=== PATIENT | female | born 1995 | race Two or more races ===

== ENCOUNTER → 2024-12-24 | Outpatient (CLI) | payer MEDICAID ==
[2024-12-24 12:21] LABS: Basophils % (auto) 0.4 % (0.0-2.0); Eosinophils # (auto) 0.2 10 ^3/uL (0-0.8); Lymphocytes # (auto) 1.7 10 ^3/uL (0.4-5.4)
[2024-12-24 12:23] LABS: Basophils # (auto) 0 10 ^3/uL (0-0.2); Eosinophils % (auto) 1.5 % (0.0-7.0); Hematocrit 34.2 % (36.0-46.0); Hemoglobin 10.7 g/dL (12.2-16.2); Lymphocytes % (auto) 15.4 % (10.0-50.0); Mean Corpuscular Hemoglobin 22.8 pg (28.0-32.0); Mean Corpuscular Hgb Conc. 31.2 g/dL (32.0-36.0); Mean Corpuscular Volume 73.2 fL (80.0-100.0); Monocytes # (auto) 0.9 10 ^3/uL (0-1.3); Monocytes % (auto) 7.5 % (0.0-12.0); Neutrophils # (auto) 8.5 10 ^3/uL (1.6-8.6); Neutrophils % (auto) 75.2 % (37.0-80.0); Nucleated Red Blood Cells % 0.1 %; Platelet Count (auto) 311 10^3/uL (140-450); Red Blood Cells 4.67 10^6/uL (4.0-5.20); Red Cell Distribution Width 18.9 % (11.8-14.3); White Blood Cell 11.3 10^3/uL (4.4-10.8)
[2024-12-24 13:06] LABS: Amphetamine Screen, Urine Neg (NEGATIVE); Barbiturate Scree,Urine Neg (NEGATIVE); Benzodiazephine Screen, Urine Neg (NEGATIVE); Cannabinoid Screen, Urine Neg (NEGATIVE); Cocaine Screen, Urine Neg (NEGATIVE); Opiate Scree,Urine Neg (NEGATIVE); Phencyclidine Screen, Urine Neg (NEGATIVE)
[2024-12-25 12:07] LABS: Chlamydia Trachomatis, NAA Negative (Negative); Neisseria gonorrhoeae, NAA Negative (Negative)
== END | disposition home or self-care (01) ==
LOC: LAB 11:16
PROVIDERS: ATTEND Obstetrics & Gynecology
DX: O23.40 Unspecified infection of urinary tract in pregnancy, unspecified trimester (principal); Z31.430 Encounter of female for testing for genetic disease carrier status for procreative management; Z20.09 Contact with and (suspected) exposure to other intestinal infectious diseases; N39.0 Urinary tract infection, site not specified; Z3A.00 Weeks of gestation of pregnancy not specified
CPT/HCPCS: 36415; 80307; 83036; 84144; 84702; 85025; 86703; 86762; 86780; 86850; 86900; 86901; 87086; 87340

== ENCOUNTER → 2025-01-26 | Outpatient (CLI) | payer MEDICAID | END | disposition home or self-care (01) | LOC: LAB 08:35 | PROVIDERS: ATTEND Obstetrics & Gynecology | DX: Z34.80 Encounter for supervision of other normal pregnancy, unspecified trimester (principal); Z3A.00 Weeks of gestation of pregnancy not specified | CPT/HCPCS: 82951 ==

== ENCOUNTER 2025-02-24 11:37 | Outpatient (CLI) | payer MEDICAID ==
[2025-02-24 12:07] LABS: Hematocrit 34.3 % (36.0-46.0); Monocytes # (auto) 1.4 10 ^3/uL (0-1.3); Nucleated Red Blood Cells % 0.1 %
[2025-02-24 12:08] LABS: Basophils # (auto) 0 10 ^3/uL (0-0.2); Basophils % (auto) 0.4 % (0.0-2.0); Eosinophils # (auto) 0.4 10 ^3/uL (0-0.8); Eosinophils % (auto) 2.7 % (0.0-7.0); Lymphocytes # (auto) 2.6 10 ^3/uL (0.4-5.4); Lymphocytes % (auto) 19.2 % (10.0-50.0); Mean Corpuscular Hemoglobin 24.2 pg (28.0-32.0); Mean Corpuscular Hgb Conc. 32.2 g/dL (32.0-36.0); Mean Corpuscular Volume 75.2 fL (80.0-100.0); Monocytes % (auto) 10.5 % (0.0-12.0); Neutrophils % (auto) 67.2 % (37.0-80.0); Platelet Count (auto) 251 10^3/uL (140-450); Red Blood Cells 4.55 10^6/uL (4.0-5.20); White Blood Cell 13.3 10^3/uL (4.4-10.8)
== END 2025-02-24 17:00 | disposition home or self-care (01) ==
LOC: LAB 11:37
PROVIDERS: ATTEND Obstetrics & Gynecology
DX: Z34.83 Encounter for supervision of other normal pregnancy, third trimester (principal)
CPT/HCPCS: 36415; 83036; 85025

== ENCOUNTER 2025-03-31 12:03 | Observation (INO) | payer MEDICAID ==
[2025-03-30] MEDS: TERBUTALINE SULFATE 1 MG/ML 1ML VIAL SC ONE (14:25)
[~2025-03-31] VITALS: Ht 165.1 cm; Wt 77.1 kg
--- NOTE | 2025-03-31 13:47 | DVH ---
BIOPHYSICAL PROFILE HISTORY: twins Comparison Study: None TECHNIQUE: Multiple real-time grayscale sonographic images through the gravid uterus of the fetus wi th duplex Doppler color flow and M-mode spectral analysis FINDINGS: BIOPHYSICAL PROFILE: breathing score: 2 movement score: 2 tone score: 2 Quantitative GARRETT score: 2 (GARRETT: 14.9 Cm.) Total score: 8 The cervix is not visualized Single live fetus in breech presentation. heart rate 132 beats per minute. Fundal/posterior placenta without previa or abruption IMPRESSION: Biophysical profile score: 8
[2025-03-31] MEDS: TERBUTALINE SULFATE 1 MG/ML 1ML VIAL SC SCH (14:15)
--- NOTE | 2025-03-31 14:29 | DVHDS2 ---
Physician Discharge Progress N Final Diagnosis: twins 32 wks Operations or Procedures: Operations or Procedures nst reactive reviwed,sono Condition on Discharge: Good Disposition: Home Discharge Instructions: Diet: Consistent carbohydrate Activity: No Restrictions, As Tolerated Medications: procardia Follow Up Care: Specialist: 2d Discharge Statement: "Patient was advised to return to the ER or call 911 if any headaches, dizziness, shortness of breath, chest pain, abdominal pain, bleeding, fevers, or worsening of medical condition. Patient was counseled about treatment plan, medications, possible side effects, patientverbalized understanding. All questions were answered to the best of my ability. This discharge took greater then 30 minutes in planning, reviewing documentation, counseling the patient, and discussing with other team members." Visit Coding OBGYN Date of Service: Mar 30, 2025 Billing Provider: JOSIANE CHAVEZ DO DEPUTY SHERIFF/INVESTIGATOR Common Visit Codes: 42951-[id number] OBS CARE (HIGH) DEPUTY SHERIFF/INVESTIGATOR Procedure Codes: 11724-27- NON-STRESS TEST JOSIANE CHAVEZ DO Mar 31, 2025 14:29
[2025-03-31] MEDS ORDERED: TERBUTALINE SULFATE 1 MG/ML 1ML VIAL SC SCH (14:30)
[2025-03-31] MEDS ORDERED: PREN-96 PO (16:03)
[2025-03-31] MEDS ORDERED: NIFE10CA52 PO (16:04)
== END 2025-03-31 16:20 | disposition home or self-care (01) ==
LOC: UNDOADMOB 12:03 → LDRP 12:03
PROVIDERS: ADMIT Obstetrics & Gynecology; ATTEND Obstetrics & Gynecology
DX: O30.003 Twin pregnancy, unspecified number of placenta and unspecified number of amniotic sacs, third trimester (principal); Z3A.32 32 weeks gestation of pregnancy; Z79.899 Other long term (current) drug therapy; Z98.890 Other specified postprocedural states
CPT/HCPCS: 59025; 76819; 81002; 94760; 96372; G0378; J3105

== ENCOUNTER 2025-04-07 00:45 | Observation (INO) | payer MEDICAID ==
[~2025-04-07] VITALS: Ht 170.2 cm; Wt 98.9 kg
[~2025-04-07 00:45] MED LIST: NIFE10CA52 PO; PREN-96 PO
--- NOTE | 2025-04-07 13:25 | DVH ---
BIOPHYSICAL PROFILE HISTORY: twins/PTL TECHNIQUE: Multiple transabdominal real-time grayscale sonographic images through the gravid uterus of the fetus with duplex Doppler color flow and M-mode spectral analysis FINDINGS: Baby A: BIOPHYSICAL PROFILE: breathing score: 2 movement score: 2 tone score: 2 Quantitative GARRETT score: 2 (MVP: 4.1 Cm.) Total score: 8 heart rate 132 beats per minute. Baby B: BIOPHYSICAL PROFILE: breathing score: 2 movement score: 2 tone score: 2 Quantitative GARRETT score: 2 (MVP: 4.5 Cm.) Total score: 8 heart rate 6 beats per minute. IMPRESSION: Biophysical profile score: 8/8
--- NOTE | 2025-04-07 13:51 | DVHDS2 ---
Physician Discharge Progress N Final Diagnosis: testing for twins/PTL Operations or Procedures: Operations or Procedures 29yo IUP@33.2wks VSS NST reactive FKC/PTL precautions reviewed Dr. Jiang consulted, agrees with POC. Condition on Discharge: Stable Disposition: Home Discharge Instructions: Diet: Regular Activity: See Comment Activity comment: pelvic rest Medications: see med list Follow Up Care: Specialist: f/u in 1wk Discharge Statement: "Patient was advised to return to the ER or call 911 if any headaches, dizziness, shortness of breath, chest pain, abdominal pain, bleeding, fevers, or worsening of medical condition. Patient was counseled about treatment plan, medications, possible side effects, patientverbalized understanding. All questions were answered to the best of my ability. This discharge took greater then 30 minutes in planning, reviewing documentation, counseling the patient, and discussing with other team members." Visit Coding OBGYN Date of Service: Apr 07, 2025 Billing Provider: MITZI LYLE CNM SHOOK MACHINE OPERATOR Common Visit Codes: 59288-[id number] OBS CARE (HIGH) SHOOK MACHINE OPERATOR Procedure Codes: 86180-92- NON-STRESS TEST MITZI LYLE CNM Apr 07, 2025 13:51
== END 2025-04-07 13:32 | disposition home or self-care (01) ==
LOC: UNDOADMOB 11:25 → LDRP 11:25
PROVIDERS: ADMIT Obstetrics & Gynecology; ATTEND Obstetrics & Gynecology
DX: O60.03 Preterm labor without delivery, third trimester (principal); O30.003 Twin pregnancy, unspecified number of placenta and unspecified number of amniotic sacs, third trimester; Z98.890 Other specified postprocedural states; Z79.899 Other long term (current) drug therapy; Z3A.33 33 weeks gestation of pregnancy
CPT/HCPCS: 59025; 76819; 81002; 94760; G0378

== ENCOUNTER 2025-04-14 07:31 | Observation (INO) | payer MEDICAID ==
--- NOTE | 2025-04-14 14:46 | DVHDS2 ---
Physician Discharge Progress N Final Diagnosis: twins,ptl 34wks,gdm Operations or Procedures: Operations or Procedures nst reactive reviwed,sono Condition on Discharge: Good Disposition: Home Discharge Instructions: Diet: Consistent carbohydrate Activity: No Restrictions, As Tolerated Medications: na Follow Up Care: Specialist: 3d Discharge Statement: "Patient was advised to return to the ER or call 911 if any headaches, dizziness, shortness of breath, chest pain, abdominal pain, bleeding, fevers, or worsening of medical condition. Patient was counseled about treatment plan, medications, possible side effects, patientverbalized understanding. All questions were answered to the best of my ability. This discharge took greater then 30 minutes in planning, reviewing documentation, counseling the patient, and discussing with other team members." Visit Coding OBGYN Date of Service: Apr 14, 2025 Billing Provider: JOSIANE CHAVEZ DO MAIL ORDER CLERK Common Visit Codes: [id number] INP/OBS CARE (MOD), 68289-[id number] INP/OBS CARE (HIGH) MAIL ORDER CLERK Procedure Codes: 32643-19- NON-STRESS TEST JOSIANE CHAVEZ DO Apr 14, 2025 14:46
--- NOTE | 2025-04-14 15:14 | DVH ---
BIOPHYSICAL PROFILE HISTORY: Twins TECHNIQUE: Multiple transabdominal real-time grayscale sonographic images through the gravid uterus o f the fetus with duplex doppler color flow and M-mode spectral analysis FINDINGS: BIOPHYSICAL PROFILE: Baby A: breathing score: 2 movement score: 2 tone score: 2 Quantitative GARRETT score: 2 (MVP: 4.95 cm.) Total score: 8/8 The cervix 1.78 cm with funneling seen. Single live fetus in vertex presentation. heart rate 127 beats per minute. Anterior placenta without previa or abruption Biophysical profile score 8/8 corresponding to an LEWIS of 05/24/25 Baby B: breathing score: 2 movement score: 2 tone score: 2 Quantitative GARRETT score: 2 (MVP: 6.69 cm.) Total score: 8/8 The cervix 1.78 cm with funneling. Single live fetus in transverse materanl right presentation. heart rate 127 beats per minute. Fundal posterior placenta without previa or abruption Biophysical profile score 8/8 corresponding to an LEWIS of 05/24/25 IMPRESSION: Biophysical profile score: 8/8
== END 2025-04-14 15:11 | disposition home or self-care (01) ==
LOC: UNDOADMOB 12:07 → LDRP 12:07
PROVIDERS: ADMIT Obstetrics & Gynecology; ATTEND Obstetrics & Gynecology
DX: O24.419 Gestational diabetes mellitus in pregnancy, unspecified control (principal); O60.03 Preterm labor without delivery, third trimester; O30.003 Twin pregnancy, unspecified number of placenta and unspecified number of amniotic sacs, third trimester; Z3A.34 34 weeks gestation of pregnancy; Z98.890 Other specified postprocedural states; Z79.899 Other long term (current) drug therapy
CPT/HCPCS: 59025; 76817; 76819; 81002; G0378

== ENCOUNTER 2025-04-21 12:21 | Outpatient (CLI) | payer MEDICAID ==
[2025-04-21 12:51] LABS: Hematocrit 36.8 % (36.0-46.0)
[2025-04-21 12:52] LABS: Hemoglobin 12.2 g/dL (12.2-16.2); Mean Corpuscular Hemoglobin 25.9 pg (28.0-32.0); Mean Corpuscular Volume 78.0 fL (80.0-100.0); Nucleated Red Blood Cells % 0.1 %
[2025-04-22 15:07] LABS: Chlamydia Trachomatis, NAA Negative (Negative); Neisseria gonorrhoeae, NAA Negative (Negative)
== END 2025-04-21 17:00 | disposition home or self-care (01) ==
LOC: LAB 12:21
PROVIDERS: ATTEND Obstetrics & Gynecology
DX: O09.893 Supervision of other high risk pregnancies, third trimester (principal); O24.419 Gestational diabetes mellitus in pregnancy, unspecified control; O30.043 Twin pregnancy, dichorionic/diamniotic, third trimester; Z11.3 Encounter for screening for infections with a predominantly sexual mode of transmission; Z3A.00 Weeks of gestation of pregnancy not specified
CPT/HCPCS: 36415; 85025; 86780

== ENCOUNTER 2025-04-21 13:07 | Observation (INO) | payer MEDICAID ==
--- NOTE | 2025-04-21 14:48 | DVH ---
BIOPHYSICAL PROFILE HISTORY: twins TECHNIQUE: Multiple transabdominal real-time grayscale sonographic images through the gravid uterus of the fetus with duplex Doppler color flow and M-mode spectral analysis FINDINGS: TWIN B: BIOPHYSICAL PROFILE: breathing score: 2 movement score: 2 tone score: 2 Quantitative GARRETT score: 2 Total score: 8 The cervix is closed measuring 2.5 cm. Single live fetus in transverse maternal right presentation. heart rate 124 beats per minute. Grade II posterior fundal placenta without previa or abruption TWIN A: BIOPHYSICAL PROFILE: breathing score: 2 movement score: 2 tone score: 2 Quantitative GARRETT score: 2 Total score: 8 The cervix is closed measuring 1.78 cm. Cervical funneling is noted Single live fetus in vertex presentation. heart rate 127 beats per minute. Grade II anterior placenta without previa or abruption IMPRESSION: Biophysical profile score: 8 twin a/twin B. Cervix measures 1.78 cm for twin B with funneling noted.
--- NOTE | 2025-04-21 17:58 | DVHDS2 ---
Physician Discharge Progress N Final Diagnosis: testing for twins Operations or Procedures: Operations or Procedures 30yo IUP@35.2wks VSS NST reactive twin A - bpp 04/17 twin B - bpp 04/17 cervical length - 2.52 cm FKC/PTL precautions reviewed Dr. Jiang consulted, agrees with POC. Condition on Discharge: Stable Disposition: Home Discharge Instructions: Diet: Regular Activity: No Restrictions, As Tolerated Medications: see med list Follow Up Care: Specialist: f/u in 1 wk Discharge Statement: "Patient was advised to return to the ER or call 911 if any headaches, dizziness, shortness of breath, chest pain, abdominal pain, bleeding, fevers, or worsening of medical condition. Patient was counseled about treatment plan, medications, possible side effects, patientverbalized understanding. All questions were answered to the best of my ability. This discharge took greater then 30 minutes in planning, reviewing documentation, counseling the patient, and discussing with other team members." Visit Coding OBGYN Date of Service: Apr 21, 2025 Billing Provider: MITZI LYLE CNM TELEVISION ANTENNA INSTALLER Common Visit Codes: [id number]-[id number] OBS CARE (HIGH) TELEVISION ANTENNA INSTALLER Procedure Codes: 40131-64- NON-STRESS TEST MITZI LYLE CNM Apr 21, 2025 17:58
== END 2025-04-21 15:33 | disposition home or self-care (01) ==
LOC: LDRP 13:07 → UNDOADMOB 13:07 → LDRP 13:23
PROVIDERS: ADMIT Obstetrics & Gynecology; ATTEND Obstetrics & Gynecology
DX: O30.003 Twin pregnancy, unspecified number of placenta and unspecified number of amniotic sacs, third trimester (principal); Z3A.35 35 weeks gestation of pregnancy; Z98.890 Other specified postprocedural states; Z79.899 Other long term (current) drug therapy
CPT/HCPCS: 59025; 76819; G0378

== ENCOUNTER 2025-04-28 06:33 | Observation (INO) | payer MEDICAID ==
[2025-04-28 15:30] LABS: Hematocrit 38.7 % (36.0-46.0); Hemoglobin 12.7 g/dL (12.2-16.2); Mean Corpuscular Hemoglobin 26.2 pg (28.0-32.0); Mean Corpuscular Volume 79.6 fL (80.0-100.0); Nucleated Red Blood Cells % 0.1 %
[2025-04-28 15:31] LABS: Urine Protein, UAD TRACE (Negative)
[2025-04-28 15:36] LABS: INR 0.92 (0.9-1.15); Partial Thromboplastin Time 28.8 SEC (24.5-34.5); Prothrombin Time 9.8 sec (9.3-11.8)
[2025-04-28 15:38] LABS: Protein, Urine 40.0 mg/dL (1-14)
[2025-04-28 15:42] LABS: Amphetamine Screen, Urine Neg (NEGATIVE); Barbiturate Scree,Urine Neg (NEGATIVE); Benzodiazephine Screen, Urine Neg (NEGATIVE); Cannabinoid Screen, Urine Neg (NEGATIVE); Cocaine Screen, Urine Neg (NEGATIVE); Opiate Scree,Urine Neg (NEGATIVE); Phencyclidine Screen, Urine Neg (NEGATIVE)
[2025-04-28 15:44] LABS: Alanine Aminotransferase < 9 U/L (7-40); Albumin 3.8 g/dL (3.2-4.8); Alkaline Phosphatase 239 U/L (46-116); Anion Gap 9 (5-15); BUN/Creatinine Ratio 9.6 (10.0-20.0); Bilirubin, Total 0.4 mg/dL (0.2-1.0); Blood Urea Nitrogen < 5 mg/dL (9-23); Calcium 9.3 mg/dL (8.7-10.4); Carbon Dioxide 24 mmol/L (20-31); Chloride 105 mmol/L (98-107); Glucose 104 mg/dL (74-106); Potassium 3.9 mmol/L (3.5-5.1); Sodium 138 mmol/L (136-145); Total Protein 7.0 g/dL (5.7-8.2); Uric Acid 4.4 mg/dL (3.1-7.8)
--- NOTE | 2025-04-28 17:08 | DVH ---
BIOPHYSICAL PROFILE HISTORY: Twins TECHNIQUE: Multiple transabdominal real-time grayscale sonographic images through the gravid uterus of the fetus with duplex Doppler color flow and M-mode spectral analysis FINDINGS: BIOPHYSICAL PROFILE: BABY B breathing score: 2 movement score: 2 tone score: 2 Quantitative GARRETT score: 2 (MVP: 5.4 Cm.) Total score: 8/8 The cervix not measure Single live fetus in TRANSVERSE HEAD ON MATERNAL LEFT presentation. heart rate 137 beats per minute. FUNDAL POSTERIOR FUNDAL Grade 2 placenta without previa or abruption Single live fetus at 36 weeks 2 days Biophysical profile score 8/8 corresponding to an LEWIS of 05/24/2025. IMPRESSION: 1. TWIN INTRAUTERINE 2. Biophysical profile score: 8/8 ON TWIN A AND TWIN B. 3. position TWIN A colon POSITION BREECH ; PLACENTA LOCATION ANTERIOR 4. heart rate 125 beats per minute TWIN A 5. HEART RATE 137 BEATS PER MINUTE TWIN B 6. NO PLACENTA PREVIA OR PLACENTAL ABRUPTION.
--- NOTE | 2025-04-28 19:47 | DVHDS2 ---
Physician Discharge Progress N Final Diagnosis: testing for twins Operations or Procedures: Operations or Procedures 30yo IUP@36.2wks, +FM, denies UCs/VB/LOF/TILLMAN/vision changes/RUQ pain VSS, normotensive NST reactive on twin A and B BPP wnl on twin A and B Dr. Jiang consulted, agrees with POC. f/u in 3 days FKC/PTL precautions reviewed. Laboratory Tests Test 04/28/25 15:00 04/28/25 15:15 Range/Units White Blood Count 8.5 4.4-10.8 10^3/uL Red Blood Count 4.87 4.0-5.20 10^6/uL Hemoglobin 12.7 12.2-16.2 g/dL Hematocrit 38.7 36.0-46.0 % Mean Corpuscular Volume 79.6 L 80.0-100.0 fL Mean Corpuscular Hemoglobin 26.2 L 28.0-32.0 pg Mean Corpuscular Hemoglobin Concent 32.9 32.0-36.0 g/dL Red Cell Distribution Width 18.3 H 11.8-14.3 % Platelet Count 218 140-450 10^3/uL Mean Platelet Volume 7.5 6.9-10.8 fL Neutrophils (%) (Auto) 71.8 37.0-80.0 % Lymphocytes (%) (Auto) 18.8 10.0-50.0 % Monocytes (%) (Auto) 7.7 0.0-12.0 % Eosinophils (%) (Auto) 1.3 0.0-7.0 % Basophils (%) (Auto) 0.4 0.0-2.0 % Neutrophils # (Auto) 6.1 1.6-8.6 10 ^3/uL Lymphocytes # (Auto) 1.6 0.4-5.4 10 ^3/uL Monocytes # (Auto) 0.7 0-1.3 10 ^3/uL Eosinophils # (Auto) 0.1 0-0.8 10 ^3/uL Basophils # (Auto) 0 0-0.2 10 ^3/uL Nucleated Red Blood Cells 0.1 % Prothrombin Time 9.8 9.3-11.8 sec Prothrombin Time INR 0.92 0.9-1.15 Activated Partial Thromboplast Time 28.8 24.5-34.5 SEC Sodium Level 138 136-145 mmol/L Potassium Level 3.9 3.5-5.1 mmol/L Chloride Level 105 98-107 mmol/L Carbon Dioxide Level 24 20-31 mmol/L Anion Gap 9 5-15 Blood Urea Nitrogen < 5 L 9-23 mg/dL Creatinine 0.52 L 0.550-1.02 mg/dL Glomerular Filtration Rate Calc 130 >90 mL/min BUN/Creatinine Ratio 9.6 L 10.0-20.0 Serum Glucose 104 74-106 mg/dL Uric Acid 4.4 3.1-7.8 mg/dL Calcium Level 9.3 8.7-10.4 mg/dL Total Bilirubin 0.4 0.2-1.0 mg/dL Aspartate Amino Transferase (AST) 22 13-40 U/L Alanine Aminotransferase (ALT) < 9 7-40 U/L Alkaline Phosphatase 239 H 46-116 U/L Total Protein 7.0 5.7-8.2 g/dL Albumin 3.8 3.2-4.8 g/dL Treponema pallidum Antibody Non-reactive Negative Hepatitis C Antibody Negative Negative Urine Color Yellow Yellow Urine Clarity Turbid H Clear Urine pH 6.0 5.0-9.0 Urine Specific [place] 1.019 1.001-1.035 Urine Protein Trace H Negative Urine Ketones Negative Negative Urine Blood Negative Negative /uL Urine Nitrite Negative Negative Urine Bilirubin Negative Negative Urine Urobilinogen Normal Negative mg/dL Urine Leukocyte Esterase Trace Negative /uL Urine RBC 2 0 - 4 /hpf Urine Microscopic WBC 9 H 0-5 /HPF Urine Squamous Epithelial Cells Many <5 /hpf Urine Bacteria None seen None Seen /hpf Urine Mucus Few None Seen Urine Creatinine 126.39 H 30.0-125.0 mg/dL Urine Protein/Creatinine Ratio 0.32 Urine Glucose Normal Normal mg/dL Urine Total Protein 40.0 H 1-14 mg/dL Urine Opiates Screen Neg NEGATIVE Urine Fentanyl Screen Neg NEGATIVE Urine Barbiturates Screen Neg NEGATIVE Urine Phencyclidine Screen Neg NEGATIVE Urine Amphetamines Screen Neg NEGATIVE Urine Benzodiazepines Screen Neg NEGATIVE Urine Cocaine Screen Neg NEGATIVE Urine Cannabinoids Screen Neg NEGATIVE Other Interventions Other Interventions [facility] [address] [facility] [address] Ph: [phone] DIAGNOSTIC IMAGING Diagnostic Imaging Report : [id number] Signed PATIENT: CIERA WHITE ACCT: [id number] UNIT: [id number] : 1995 LOC: LD ROOM / BED: TRIAGE1 / A AGE / SEX: 30 / F ADM STATUS: ADM IN SERVICE [id number] ORDERING PHYSICIAN: MITZI LYLE CNM PROCEDURE(s): BPP - BIOPHYSICAL PROFILE REASON: Twins ORDER NUMBER(s): [id number], ACCESSION NUMBER(s): [id number] BIOPHYSICAL PROFILE HISTORY: Twins TECHNIQUE: Multiple transabdominal real-time grayscale sonographic images through the gravid uterus of the fetus with duplex Doppler color flow and M-mode spectral analysis FINDINGS: BIOPHYSICAL PROFILE: BABY B breathing score: 2 movement score: 2 tone score: 2 Quantitative GARRETT score: 2 (MVP: 5.4 Cm.) Total score: 8/8 The cervix not measure Single live fetus in TRANSVERSE HEAD ON MATERNAL LEFT presentation. heart rate 137 beats per minute. FUNDAL POSTERIOR FUNDAL Grade 2 placenta without previa or abruption Single live fetus at 36 weeks 2 days Biophysical profile score 8/8 corresponding to an LEWIS of 05/24/2025. IMPRESSION: 1. TWIN INTRAUTERINE 2. Biophysical profile score: 8/8 ON TWIN A AND TWIN B. 3. position TWIN A colon POSITION BREECH ; PLACENTA LOCATION ANTERIOR 4. heart rate 125 beats per minute TWIN A 5. HEART RATE 137 BEATS PER MINUTE TWIN B 6. NO PLACENTA PREVIA OR PLACENTAL ABRUPTION. ATED BY: BECKY HEADLEY Jr., DO DICTATED DATE/TIME: 04/28/251704 SIGNED BY: BECKY HEADLEY Jr., SIGNED DATE/TIME: 04/28/251704 CC: Condition on Discharge: Stable Disposition: Home Discharge Instructions: Diet: Regular Activity: Light activity Medications: see med list Follow Up Care: Specialist: f/u in 3 days Discharge Statement: "Patient was advised to return to the ER or call 911 if any headaches, dizziness, shortness of breath, chest pain, abdominal pain, bleeding, fevers, or worsening of medical condition. Patient was counseled about treatment plan, medications, possible side effects, patientverbalized understanding. All questions were answered to the best of my ability. This discharge took greater then 30 minutes in planning, reviewing documentation, counseling the patient, and discussing with other team members." Visit Coding OBGYN Date of Service: Apr 28, 2025 Billing Provider: MITZI LYLE CNM CATALYST OPERATOR Common Visit Codes: [id number] OBS CARE (HIGH) CATALYST OPERATOR Procedure Codes: 46640-62- NON-STRESS TEST MITZI LYLE CNM Apr 28, 2025 19:47
== END 2025-04-28 17:29 | disposition home or self-care (01) ==
LOC: UNDOADMOB 14:47 → LDRP 14:47
PROVIDERS: ADMIT Obstetrics & Gynecology; ATTEND Obstetrics & Gynecology
DX: O30.003 Twin pregnancy, unspecified number of placenta and unspecified number of amniotic sacs, third trimester (principal); Z3A.36 36 weeks gestation of pregnancy; Z98.890 Other specified postprocedural states; Z79.899 Other long term (current) drug therapy; Z86.2 Personal history of diseases of the blood and blood-forming organs and certain disorders involving the immune mechanism
CPT/HCPCS: 36415; 59025; 76819; 80053; 80307; 81001; 82570; 84156; 84550; 85025; 85610; 85730; 86780; 86803; 94760; G0378

== ENCOUNTER 2025-05-01 06:55 | Observation (INO) | payer MEDICAID ==
--- NOTE | 2025-05-01 16:41 | DVH ---
BIOPHYSICAL PROFILE HISTORY: TWINS TECHNIQUE: Multiple real-time grayscale sonographic images through the gravid uterus of the fetus wi th duplex Doppler color flow. FINDINGS: BIOPHYSICAL PROFILE TWIN A: breathing score: 2 movement score: 2 tone score: 2 Quantitative GARRETT score: 2 Total score: 8 out of 8 BIOPHYSICAL PROFILE TWIN B: breathing score: 2 movement score: 2 tone score: 2 Quantitative GARRETT score: 2 Total score: 8 out of 8 Twin A : heart rate 124 beats per minute. Cephalic lie. Placenta anteriorly positioned. Larges t pocket volume of 3.4 cm Twin B: heart rate 150 beats per minute. Oblique positioned. Placenta fundally/posteriorly pos itioned. Maximum pocket volume of 8.5 cm. IMPRESSION: Twin gestation Biophysical profile score: 8 out of 8 for each of the twins.
--- NOTE | 2025-05-02 08:33 | DVHDS2 ---
Physician Discharge Progress N Final Diagnosis: TWINS GDM Operations or Procedures: Operations or Procedures NST REACTIVE REVIWED,SONO Condition on Discharge: Good Disposition: Home Discharge Instructions: Diet: Regular Activity: No Restrictions, As Tolerated Medications: NA Follow Up Care: Specialist: 3D Discharge Statement: "Patient was advised to return to the ER or call 911 if any headaches, dizziness, shortness of breath, chest pain, abdominal pain, bleeding, fevers, or worsening of medical condition. Patient was counseled about treatment plan, medications, possible side effects, patientverbalized understanding. All questions were answered to the best of my ability. This discharge took greater then 30 minutes in planning, reviewing documenta tion, counseling the patient, and discussing with other team members." Visit Coding OBGYN Date of Service: May 01, 2025 Billing Provider: JOSIANE CHAVEZ DO DIRECTOR OF ARCHIVES Common Visit Codes: [id number] INP/OBS CARE (HIGH) DIRECTOR OF ARCHIVES Procedure Codes: 52889-95- NON-STRESS TEST JOSIANE CHAVEZ DO May 02, 2025 08:33
== END 2025-05-01 16:45 | disposition home or self-care (01) ==
LOC: LDRP 15:00
PROVIDERS: ADMIT Obstetrics & Gynecology; ATTEND Obstetrics & Gynecology
DX: O24.419 Gestational diabetes mellitus in pregnancy, unspecified control (principal); O30.003 Twin pregnancy, unspecified number of placenta and unspecified number of amniotic sacs, third trimester; Z3A.36 36 weeks gestation of pregnancy; Z79.899 Other long term (current) drug therapy
CPT/HCPCS: 59025; 76819; 81002; G0378

== ENCOUNTER 2025-05-05 14:41 | Inpatient (IN) | payer MEDICAID ==
[2025-05-05] VITALS (7 sets, daily range): BP systolic 109–112; BP diastolic 54–71; PULSE 62–80; RESP 16–18; TEMP 97.7–98; O2SAT 94–97
[~2025-05-05] VITALS: Ht 170.2 cm; Wt 102.1 kg
--- NOTE | 2025-05-05 15:56 | DVH ---
BIOPHYSICAL PROFILE HISTORY: Twin Gest. Comparison Study: US BIOPHYSICAL PROFILE on DOS: 05/01/25, US BIOPHYSICAL PROFILE on DOS: 04/28/25, US BIOPHYSICAL PROFILE on DOS: 04/21/25, US BIOPHYSICAL PROFILE on DOS: 04/14/25, US BIOPHYSICAL PROFILE on DOS: 04/07/25 TECHNIQUE: Multiple real-time grayscale sonographic images through the gravid uterus of the fetus wi th duplex Doppler color flow and M-mode spectral analysis FINDINGS: TWIN A: BIOPHYSICAL PROFILE: breathing score: 2 movement score: 2 tone score: 2 Quantitative GARRETT score: 2 (GARRETT: 16.9 cm, deepest pocket 6.9 Cm.) Total score: 8 The cervix is not visualized Single live fetus in cephalic presentation. heart rate 125 beats per minute. Anterior placenta without previa or abruption TWIN B: BIOPHYSICAL PROFILE: breathing score: 2 movement score: 2 tone score: 2 Quantitative GARRETT score: 2 (GARRETT: Deepest pocket 6.2 Cm.) Total score: 8 The cervix is not visualized Single live fetus in transverse left presentation. heart rate 132 beats per minute. Fundal/posterior placenta without previa or abruption IMPRESSION: Biophysical profile score: 8 for both twin a and twin B
[2025-05-05 16:53] LABS: Hematocrit 37.4 % (36.0-46.0); Hemoglobin 12.5 g/dL (12.2-16.2); Mean Corpuscular Hemoglobin 26.5 pg (28.0-32.0); Mean Corpuscular Volume 79.3 fL (80.0-100.0); Nucleated Red Blood Cells % 0.2 %
[2025-05-05 16:54] LABS: INR 0.92 (0.9-1.15); Partial Thromboplastin Time 27.8 SEC (24.5-34.5); Prothrombin Time 9.8 sec (9.3-11.8)
[2025-05-05 16:57] LABS: Alanine Aminotransferase < 9 U/L (7-40); Albumin 3.8 g/dL (3.2-4.8); Alkaline Phosphatase 262 U/L (46-116); Anion Gap 12 (5-15); BUN/Creatinine Ratio 9.3 (10.0-20.0); Bilirubin, Total 0.4 mg/dL (0.2-1.0); Blood Urea Nitrogen < 5 mg/dL (9-23); Calcium 9.6 mg/dL (8.7-10.4); Carbon Dioxide 21 mmol/L (20-31); Chloride 106 mmol/L (98-107); Glucose 127 mg/dL (74-106); Potassium 3.8 mmol/L (3.5-5.1); Sodium 139 mmol/L (136-145); Total Protein 6.8 g/dL (5.7-8.2)
[2025-05-05] MEDS: TETRACAINE 1% INJ 2 ML VIAL IJ ONE (17:24)
[2025-05-05] MEDS: FAMOTIDINE (10MG/ML) 2ML VL IV ONE (17:25)
--- NOTE | 2025-05-05 17:26 | DVHHP2 ---
OB CC & HPI Date Date of Admission: May 05, 2025 Patient Identification: : 2 Para: 1 EDC: May 24, 2025 EGA: 37WKS Chief Complaints: Reason for admission: active labor Indication for : desires repeat Admission Nurse Assessment Rev: No History of Present Complaints PT IS ADMITTED FOR LABOR,SHE HAS TWINS WITH GDMA2.SHE ALSO HAS HX OF PTL AND HAS BEEN ON PROCARDIA DESPITE IT ALIYA Past Medical History Cardiac: No pertinent Hx Pulmonary: No pertinent Hx Central Nervous System: No pertinent Hx GI: No pertinent Hx Hemotology/Oncology: No pertinent Hx Hepatobiliary: No pertinent Hx Psychiatric: No pertinent Hx Musculoskeletal: No pertinent Hx Rheumotologic: No pertinent Hx Infectious Disease: No peritnent Hx ENT: No pertinent Hx Renal/: No pertinent Hx Endocrine: No pertinent Hx Dermatology: No pertinent Hx Past Surgical History: OB History OB History Care: Good Care Ultrasounds: Normal mid trimester US Obstetrical Complications: Gestational Diabetes Medical Complications: None Allergies: Coded Allergies: NO KNOWN ALLERGIES (Unverified , 03/31/25) Home Meds Reported Medications Nifedipine (PROCARDIA CAPSULE) 10 Mg Cp, 10 MG PO QID, CAP 03/31/25 Vit W/ Ferrous Fumara ( One Daily) Daily Tab, 1 TAB PO DAILY, #90 TAB 3 Refills 03/31/25 Current Medications Current Medications Medications (Trade) Dose Ordered Sig/Paolo Route PRN Reason Start Time Stop Time Status Last Admin Lactated Ringer's 1,000 ml @ 125 mls/hr Q8H IV 05/05/25 16:45 Family & Social History Family/Social History Blood Type: Unknown Rubella: unknown RPR/VDRL: Negative GBS Status: Unknown HBsAG: Negative Review of Systems Constitutional: No symptom reported Ears, Nose, & Throat: No symptom reported Eyes: No symptom reported Pulmonary/Respiratory: No symptom reported Cardiovascular: No symptom reported Gastrointestinal: No symptom reported Genitourinary: No symptom reported Musculoskeletal: No symptom reported Skin: No symptom reported Psychiatric: No symptom reported Endocrine: No symptom reported Hemotologic/Lymphatic: No symptom reported OB Admission Exam Physical Exam HEENT: TMs Normal, Fontanelles Normal, Nasal Mucosa Normal, Eyes non-injected, Oropharynx Normal, PERRLA, Moist Membranes, EOMI Heart: Rhythm Normal Lungs: Clear Abdomen: Non tender Extremities: Normal Reflexes: Normal Cervical Dilatation: 1cm Effacement: 25% Station: -2 Membranes: Intact Heart Rate: 130's Accelerations: Accelerations Present Decelerations: No Decelerations Short Term Variability: Present Shelter Variability: Average (6-25) Contractions on Admission: < 5 Minutes Apart Intensity: Moderate OB Plan Plan Admitting Diagnosis: IUP AT 37WKS WITH TWINS IN LABOR GDMA2 PTL ON PROCARDIA MORBID OBESITY DESIRES RCS Plan: Section Other Plan: INFORMED CONSENT OBTAINED ,RISK AND COMPL OF CS D/W PT ALL QUESTIONS ANSWERED,POSSIB OF INFECTION,BLEEDING,DVT,PE AND PREMATURITY RDS IN BABIES D/W PT.PT WISHES TO PROCEED WITH RCS Visit Coding OBGYN Date of Service: May 05, 2025 Billing Provider: JOSIANE CHAVEZ DO SVP PROGRAMMATIC TV Common Visit Codes: [id number] INP/OBS CARE (HIGH) SVP PROGRAMMATIC TV Procedure Codes: 63819-04- NON-STRESS TEST JOSIANE CHAVEZ DO May 05, 2025 17:26
[2025-05-05] MEDS ORDERED: fentaNYL CITRATE 100 MCG/2 ML VL ONE (17:27)
[2025-05-05] MEDS ORDERED: MORPHINE SULF PF 5 MG/10 ML VIAL ONE (17:27)
[2025-05-05] MEDS ORDERED: DOCU-94 PO (17:30)
[2025-05-05] MEDS: GUM (CHEWING) 1 GUM CHEW CHEW ONE (17:30)
[2025-05-05] MEDS ORDERED: ONDANSETRON HCL 4 MG/2 ML VIAL ONE (17:30)
[2025-05-05] MEDS ORDERED: HYDR-4072 PO (17:30)
[2025-05-05] MEDS ORDERED: GLYCOPYRROLATE 0.2 MG/ML 1ML VIAL ONE (17:30)
[2025-05-05] MEDS ORDERED: BUPIVACAINE/DEXTROSE MPF 0.75% 2 ML AMP IT ONE (17:30)
[2025-05-05] MEDS: LACT. RINGERS/OXYTOCIN 20UNITS 1,000 ML IV ONE (17:30)
[2025-05-05] MEDS ORDERED: CEPH500T PO (17:30)
[2025-05-05] MEDS ORDERED: ceFAZolin 1GM/50ML 50 ML IV SCH (17:30)
[2025-05-05] MEDS ORDERED: IBUP-1456 PO (17:30)
[2025-05-05] MEDS ORDERED: KETOROLAC TROMETH 30 MG/ML 1ML VIAL ONE (17:30)
--- NOTE | 2025-05-05 18:22 | DVHOP2 ---
Operative Report DATE OF OPERATION:05/05/25 PREOPERATIVE DIAGNOSES: [iup at 37wks in labor,twin gest,previous csx1 desires rcs,morbid obesity] POSTOPERATIVE DIAGNOSES: [same] OPERATION PERFORMED: Repeat Section FINDINGS: [2 boys] infant. Apgars of [8 and 9 ] and [7 and 8 ]. Weight [good] crying tone. [clear] amniotic fluid. Placenta and three-vessel were intact. Normal tubes, ovaries, and uterus. Moderate scar tissue. SURGEON: Jen Chavez D.O. COCKTAIL LOUNGE MANAGER: photovoltaic installation technician, [sheba]. ANESTHESIOLOGIST: Ion nevarez ANESTHESIA: [Duramorph spinal, regional]. COMPLICATIONS: [none]. ESTIMATED BLOOD LOSS: [1500] mL. BLOOD PRODUCTS USED: [none]. PROCEDURE IN DETAIL: The patient was taken to the operating room, placed in sitting position, and spinal was placed without difficulty. She was then prepped and draped in a sterile fashion. A low Pfannenstiel incision was made scapel. At this point, it was carried down through the rectus fascia, nicked in the midline, and carried laterally. The rectus muscles were in the midline. Peritoneum was identified and entered with sharp dissection. Vesicouterine peritoneum was taken off the lower uterine segment. A lower uterine transverse incision was made with a scalpel down the chorionic membranes, ruptured with hemostat. Infant was in vertex position. One hand was placed in the lower uterine segment. Head was essentially delivered spontaneously. Nose and mouth were bulb suctioned. Shoulders and torso were delivered without difficulty. Again, pharynx, nose, and mouth were re-suctioned with vigorous crying tone. Cord was cut. The infants were baby boyx2,apgasr 8/9 and 7/8 vx and transverse lie,they was handed off to the awaiting Respiratory. At this point, umbilical blood sample was taken. Placenta was removed. Uterus was exteriorized, cleared off all clots and debris, irrigated, and closed with a double layer of 0-Vicryl. The vesicouterine peritoneum was incorporated into this closure. We had complete hemostasis. EBL was [1500] mL. The instrument, lap, and sponge count was correct x1. The uterus was placed back into the peritoneum. The peritoneal cavity was re-inspected and the lower uterine incision with good hemostasis. We closed the peritoneum with running continuous of 2-0 Vicryl. The Rectus Fascia was closed with 0-PDS, running continuous, looped-0. The skin was closed undermined, irrigated, and close with radha. CONDITION: The patient's and the infant's condition is stable and but guarded. Visit Coding OBGYN Date of Service: May 05, 2025 Billing Provider: JEN CHAVEZ DO MANAGER REGIONAL SALES Common Visit Codes: [id number] INP/OBS CARE (HIGH) MANAGER [employer]IONAL SALES Procedure Codes: [id number] DELIVERY ONLY JEN CHAVEZ DO May 05, 2025 18:22
--- NOTE | 2025-05-05 18:25 | POSTOP ---
Post-Operative Note Post-Operative Note Preop Diagnosis iup at 37wks in labor,twin gest ,gdma2,,morbid obesity,desires rcs Postop Diagnosis: same Operation performed rcs Specimen baby boyx2,apgsr 04/18,03/17 Anesthesia: Regional Anesthesiologist: марина Blood Loss(fluid mgmt) 1500ml Surgeon Josiane Jiang Merchandise Manager sheba Implant na Complications & Mgmt none Date 05/05/25 Time 18:22 Visit Coding OBGYN Date of Service: May 05, 2025 Billing Provider: JOSIANE JIANG DO COOLER CONVEYOR LOADER Common Visit Codes: [id number] INP/OBS CARE (HIGH) COOLER CONVEYOR LOADER Procedure Codes: [id number] DELIVERY ONLY JOSIANE JIANG DO May 05, 2025 18:25
[2025-05-05 18:32] LABS: Urine Protein, UAD TRACE (Negative)
[2025-05-05 18:38] LABS: Amphetamine Screen, Urine Neg (NEGATIVE); Barbiturate Scree,Urine Neg (NEGATIVE); Benzodiazephine Screen, Urine Neg (NEGATIVE); Cannabinoid Screen, Urine Neg (NEGATIVE); Cocaine Screen, Urine Neg (NEGATIVE); Opiate Scree,Urine Neg (NEGATIVE); Phencyclidine Screen, Urine Neg (NEGATIVE)
[2025-05-05] MEDS ORDERED: NALOXONE HCL 0.4 MG/ML VIAL IV PRN (18:45)
[2025-05-05] MEDS ORDERED: KETOROLAC TROMETH 30 MG/ML 1ML VIAL IV PRN (18:45)
[2025-05-05] MEDS ORDERED: ONDANSETRON HCL 4 MG/2 ML VIAL IV PRN (18:45)
[2025-05-05] MEDS: LACTATED RINGER'S 1,000 ML IV ONE (18:49)
[2025-05-05] MEDS: ceFAZolin 2 GM/D5W50ml 50 ML IV ONE ×2 (18:50)
[2025-05-05] MEDS: ACETAMINOPHEN IV 100 ML IV ONE (18:53)
[2025-05-05] MEDS: ACETAMINOPHEN IV 1000 MG/100ML (10MG/ML) IV ONE (19:00)
[2025-05-05] MEDS: ONDANSETRON HCL 4 MG/2 ML VIAL IV PRN (19:45)
[2025-05-05] MEDS: LACTATED RINGER'S 1,000 ML IV SCH (20:40)
[2025-05-06] VITALS (21 sets, daily range): BP systolic 106–131; BP diastolic 55–79; PULSE 75–122; RESP 16–18; TEMP 97.7–98.8; O2SAT 94–97
[2025-05-06] MEDS: ceFAZolin 1GM/50ML 50 ML IV SCH (01:07)
--- NOTE | 2025-05-06 01:54 | DVHPN2 ---
Progress Note Date Seen: May 06, 2025 Subjective S: falk in place. not ambulating yet, tolerating ice chips, pain managed with IV meds, formula feeding only vital signs Vital Sign Date Time Temp Pulse Resp B/P (MAP) Pulse Ox O2 Delivery O2 Flow Rate FiO2 05/05/25 19:10 Room Air 05/05/25 18:55 77 17 107/55 (72) 98 05/05/25 18:40 97.3 97.3 Total Intake and Output 05/05/25 05/05/25 05/06/25 15:00 23:00 07:00 Intake Total 50 ml Balance 50 ml medications Current Medications Medications Dose Ordered Sig/Paolo Route Start Time Stop Time Status Last Admin Dose Admin Lactated Ringer's 1,000 ml @ 125 mls/hr Q8H IV 05/05/25 16:45 05/05/25 20:40 125 MLS/HR Ondansetron HCl 4 mg Q4HP PRN IV 05/05/25 17:30 05/05/25 19:45 4 MG Diphenhydramine HCl 25 mg Q4HP PRN IV 05/05/25 18:45 Ondansetron HCl 4 mg Q4HP PRN IV 05/05/25 18:45 Cancel Ketorolac Tromethamine 30 mg Q6HP PRN IV 05/05/25 18:45 05/10/25 18:44 Cefazolin Sodium 50 ml @ 100 mls/hr Q8H IV 05/06/25 01:00 05/06/25 17:29 05/06/25 01:07 100 MLS/HR laboratory and microbiology Laboratory Tests 05/05/25 16:31 Test 05/05/25 16:31 Range/Units Serum Glucose 127 H 74-106 mg/dL Objective O: VSS Chest: heart sounds normal and lung sounds clear bilaterally Abd: soft, non-tender, fundus at U/firm/midline, active bowel sounds, no rebound or guarding Incision: mepilex dressing clean/dry/intact, old serosanguineous drainage noted Ext: Non-tender, 1+ edema Lochia: minimal See lab results Problems(with codes): (1) S/P repeat low transverse (2) Twins, both liveborn Assessment/Plan A/P: 30yo now POD#1 s/p repeat -Continue with routine post-op PP care Plan discussed with: Patient Visit Coding OBGYN Date of Service: May 06, 2025 Billing Provider: MITZI LYLE CNM OVEN DUMPER Common Visit Codes: [id number] INP/OBS CARE(HIGH) MITZI LYLE CNM May 06, 2025 01:54
[2025-05-06] MEDS: ACETAMINOPHEN IV 1000 MG/100ML (10MG/ML) IV PRN ×2 (02:29→11:39)
[2025-05-06] MEDS: diphenhdrAMINE HCL 50 MG/1 ML VL IV PRN (03:26)
[2025-05-06 06:06] LABS: Hematocrit 32.2 % (36.0-46.0); Hemoglobin 10.8 g/dL (12.2-16.2); Mean Corpuscular Hemoglobin 26.4 pg (28.0-32.0); Mean Corpuscular Volume 78.8 fL (80.0-100.0); Nucleated Red Blood Cells % 0.0 %
[2025-05-06] MEDS ORDERED: HYDROcodone-ACET 5/325MG TAB PO PRN (18:30)
[2025-05-06] MEDS: HYDROcodone-ACET 5/325MG TAB PO PRN (19:40)
[2025-05-06] MEDS: DOCUSATE SOD 100 MG CAP PO SCH (21:42)
[2025-05-06] MEDS: SIMETHICONE 80 MG CHEWABLE TABLET PO SCH (21:42)
--- NOTE | 2025-05-07 01:08 | DVHPN2 ---
Progress Note Date Seen: May 07, 2025 Subjective Patient sitting up in bed and eating. States she feels slightly itchy, but is overall doing well. Baby A in bassinet, sleeping at bedside. Baby B with RN receiving bath S: -Lochia minimal -Regular diet well tolerated. -Ambulating and voiding well w/o feeling dizzy or lightheaded -Pain relieved with oral medication PRN -Passing flatus but no BM yet. -Bottlefeeding w/o problem -Desires and requests to be discharged home Sunday (05/08) vital signs Vital Sign Date Time Temp Pulse Resp B/P (MAP) Pulse Ox O2 Delivery O2 Flow Rate FiO2 05/06/25 23:20 98.8 105 16 129/72 (91) 97 98.8 05/06/25 19:00 Room Air Total Intake and Output 05/06/25 05/06/25 05/07/25 15:00 23:00 07:00 Output Total 850 ml 250 ml Balance -850 ml -250 ml medications Current Medications Medications Dose Ordered Sig/Apolo Route Start Time Stop Time Status Last Admin Dose Admin Ondansetron HCl 4 mg Q4HP PRN IV 05/05/25 17:30 05/05/25 19:45 4 MG Ondansetron HCl 4 mg Q4HP PRN IV 05/05/25 18:45 Cancel Ketorolac Tromethamine 30 mg Q6HP PRN IV 05/05/25 18:45 05/10/25 18:44 Cancel Docusate Sodium 100 mg Q12HR PO 05/06/25 22:00 05/06/25 21:42 100 MG Dimethicone 80 mg QID PO 05/06/25 22:00 05/06/25 21:42 80 MG Ibuprofen 800 mg Q8HP PRN PO 05/06/25 18:30 Acetaminophen/ Hydrocodone Bitart 1 tab Q4HPRN PRN PO 05/06/25 18:30 Acetaminophen/ Hydrocodone Bitart 2 tab Q4HPRN PRN PO 05/06/25 18:30 05/06/25 19:40 2 TAB laboratory and microbiology Laboratory Tests 05/06/25 05:57 05/05/25 16:31 Test 05/05/25 16:31 Range/Units Serum Glucose 127 H 74-106 mg/dL Objective O: -A&O x4. No apparent distress. Affect appropriate -Afebrile, VSS -Chest: heart and lung sounds normal. -Breasts: Nipples intact w/o cracks or soreness -Abdomen: normal BS, soft, non-tender, no rebound or guarding, fundus firm @ U- 1, -Lower abdominal incision site with dressing dry and intact. No edema, erythema or induration -Extremities: no edema or tenderness Problems(with codes): (1) S/P repeat low transverse (2) Twins, both liveborn Assessment/Plan A: 30 yo now Post operative & ppd # 2 s/p repeat Section for twin gestation, doing well. Blood Type: A+ Bottle feeding Rubella Immune Hemorrhage P: -Continue pain management with oral medications as previously ordered -Increase fluid intake and fiber in diet to promote regular bowel movements, Laxative PRN -Educated patient on self-care and warning signs to watch for, including PPH, PPD, and pre-eclampsia -Continue routine care Plan discussed with: Patient, Sister (family) Plan discussed with: Patient Visit Coding OBGYN Date of Service: May 07, 2025 Billing Provider: SHANEKA MARINA CNM STOCK DRIER TENDER Common Visit Codes: [id number] INP/OBS CARE(HIGH) SHANEKA MARINA CNM May 07, 2025 01:08
[2025-05-07 03:00] VITALS: BP 130/80; PULSE 96; RESP 16; TEMP 97.9; O2SAT 97
[2025-05-07 06:59] VITALS: BP 134/82; PULSE 100; TEMP 98.3; O2SAT 97
[2025-05-07 11:26] VITALS: BP 126/73; PULSE 89; RESP 20; TEMP 98.4; O2SAT 98
[2025-05-07 15:00] VITALS: BP 119/74; PULSE 95; RESP 14; TEMP 98.2; O2SAT 97
[2025-05-07] MEDS: THROAT LOZENGES(CEPASTAT) MT ONE (17:18)
[2025-05-07 19:20] VITALS: BP 122/71; PULSE 100; RESP 14; TEMP 98.3; O2SAT 99
[2025-05-07 21:10] LABS: COVID19 ANTIGEN SOFIA FIA NEGATIVE (NEGATIVE)
[2025-05-07] MEDS: IBUPROFEN 800 MG TAB PO PRN (21:47)
[2025-05-07 23:00] VITALS: BP 124/77; PULSE 99; RESP 16; TEMP 98.5; O2SAT 98
--- NOTE | 2025-05-08 00:59 | DVHPN2 ---
Progress Note Date Seen: May 08, 2025 Subjective S: -Lochia minimal -Regular diet well tolerated. -Ambulating and voiding well w/o feeling dizzy or lightheaded -Pain relieved with oral medication PRN -Passing flatus. Had BM today -Bottlefeeding w/o problem - Contraceptive plan: Undecided -Desires and requests to be discharged home today (05/08) vital signs Vital Sign Date Time Temp Pulse Resp B/P (MAP) Pulse Ox O2 Delivery O2 Flow Rate FiO2 05/07/25 23:00 98.5 99 16 124/77 (93) 98 98.5 05/07/25 19:20 Room Air medications Current Medications Medications Dose Ordered Sig/Paolo Route Start Time Stop Time Status Last Admin Dose Admin Ondansetron HCl 4 mg Q4HP PRN IV 05/05/25 17:30 05/05/25 19:45 4 MG Ondansetron HCl 4 mg Q4HP PRN IV 05/05/25 18:45 Cancel Ketorolac Tromethamine 30 mg Q6HP PRN IV 05/05/25 18:45 05/10/25 18:44 Cancel Docusate Sodium 100 mg Q12HR PO 05/06/25 22:00 05/07/25 21:47 100 MG Dimethicone 80 mg QID PO 05/06/25 22:00 05/07/25 21:47 80 MG Ibuprofen 800 mg Q8HP PRN PO 05/06/25 18:30 05/07/25 21:47 800 MG Acetaminophen/ Hydrocodone Bitart 1 tab Q4HPRN PRN PO 05/06/25 18:30 Acetaminophen/ Hydrocodone Bitart 2 tab Q4HPRN PRN PO 05/06/25 18:30 05/07/25 16:56 2 TAB laboratory and microbiology Laboratory Tests 05/06/25 05:57 05/05/25 16:31 Test 05/05/25 16:31 Range/Units Serum Glucose 127 H 74-106 mg/dL Objective O: -A&O x4. No apparent distress. Affect appropriate -Afebrile, VSS -Chest: heart and lung sounds normal. -Breasts: Nipples intact w/o cracks or soreness -Abdomen: normal BS, soft, non-tender, no rebound or guarding, fundus firm @ U- 1, -Lower abdominal incision site with dressing dry and intact. No edema, erythema or induration -Extremities: no edema or tenderness Problems(with codes): (1) S/P repeat low transverse Assessment/Plan A: 30 yo now Post operative & ppd # 3 s/p repeat Section for twin gestation, doing well. Blood Type: AB+ Bottle feeding Rubella Immune P: -Continue pain management with oral medications as previously ordered -Continue adequate fluid intake and fiber in diet to promote regular bowel movements -Educated patient on self-care and warning signs to watch for, including PPH, PPD, and pre-eclampsia -Continue routine care and anticipate discharge today (05/08) Plan discussed with: Patient Plan discussed with: Patient Visit Coding OBGYN Date of Service: May 08, 2025 Billing Provider: SHANEKA MARINA CNM METAL FURRER Common Visit Codes: [id number] INP/OBS CARE(MOD) SHANEKA MARINA CNM May 08, 2025 00:59
--- NOTE | 2025-05-08 01:01 | DVHDS2 ---
Obstetrics Discharge Summary Obstetrics Discharge Summary Date of Admission: May 05, 2025 Date of Discharge: May 08, 2025 Reason For Admission: Section (Repeat) Intrapartum Procedures: (Low Cervical Transverse) Procedures: Hct/date: (32.2), Hgb/date: (10.8) Operative Complicat: Hemorrhage (Uterine) Discharge Diagnosis: Term -Delivered Discharge Information: Activity (Unrestricted. Advance as tolerated. Balance activities with rest periods. No heavy lifting, pushing or straining. Pelvic rest x 6 weeks), Diet (Routine), Medications (See med list), Discharge to (Home), Discarge date (05/08/25) Discharge Care Plan Instructions - self care instructions given - emergency signs and symptoms including but not limited to pre-eclampsia precautions and signs of infection, PPH & of PPD reviewed with patient. -Follow up with OB Provider in 1 week for incision check. Visit Coding OBGYN Date of Service: May 08, 2025 Billing Provider: SHANEKA MARINA CNM SUPERVISOR FRAME SAMPLE AND PATTERN Common Visit Codes: [id number]/[id number] DISCH DAY >30MIN SHANEKA MARINA CNM May 08, 2025 01:01
--- NOTE | 2025-05-08 01:06 | DVHDS2 ---
ASSESSMENT ASSESSMENT Hospital Course Tiffanie Bella is a 30 year old now who was admitted on 05/05/25 for repeat section r/t twin gestation in labor. See PeriOp note for details. PPH with stable Hgb Normal course; meeting milestones without problem or complication Assessment IUP at 37w2d with twin gestation Repeat Delivery Hemorrhage SHANEKA MARINA CNM May 08, 2025 01:06
[2025-05-08 03:00] VITALS: BP 120/66; PULSE 108; RESP 17; TEMP 98.4; O2SAT 98
[2025-05-08 06:53] VITALS: BP 128/78; PULSE 91; RESP 17; TEMP 98.7
[2025-05-08 11:00] VITALS: BP 131/77; PULSE 86; RESP 17; TEMP 98.4; O2SAT 97
[2025-05-08 15:03] VITALS: BP 132/72; PULSE 86; RESP 16; TEMP 99.1; O2SAT 97
[2025-05-08] MEDS ORDERED: MEASLES, MUMPS & RUBELLA VAC(MMRII) 0.5ML SC ONE (16:15)
== END 2025-05-08 17:42 | disposition home or self-care (01) | DRG 540 ==
LOC: LDRP 14:41 → UNDOADMOB 14:41 → LDRP 14:48 → OBSVTOIN 16:31 → LDRP 16:55
PROVIDERS: ADMIT Obstetrics & Gynecology; ATTEND Obstetrics & Gynecology
PROC: 10D00Z1 Extraction of Products of Conception, Low, Open Approach (ICD-10-PCS; principal; 2025-05-05 17:27)
DX: O99.214 Obesity complicating childbirth (principal); Z37.2 Twins, both liveborn; O30.043 Twin pregnancy, dichorionic/diamniotic, third trimester; O24.425 Gestational diabetes mellitus in childbirth, controlled by oral hypoglycemic drugs; O32.2XX0 Maternal care for transverse and oblique lie, not applicable or unspecified; Z37.0 Single live birth; E66.01 Morbid (severe) obesity due to excess calories; O72.1 Other immediate postpartum hemorrhage; Z3A.37 37 weeks gestation of pregnancy; Z20.822 Contact with and (suspected) exposure to COVID-19; O34.211 Maternal care for low transverse scar from previous cesarean delivery
CPT/HCPCS: 36415; 59025; 76819; 80053; 80307; 81001; 81002; 85025; 85610; 85730; 86780; 87426; 87804; 94760; 94762; 96360; 96361; 96374; G0378; J0131; J1885; J2405; J2590; J3490